=== PATIENT | male | born 1955 | race Hispanic/Latino ===

== ENCOUNTER 2018-07-20 13:04 | Inpatient (IN) | payer BC ==
[2018-07-20] MEDS ORDERED: Nitroglycerin 2% Ointment 1 INCH/1 GM Packet ONE (13:26)
[2018-07-20] MEDS ORDERED: Aspirin Chewable 81 MG TAB ONE (13:38)
[2018-07-20 13:44] LABS: #Eosinphils 0.2 thou/uL (0.0-0.7); #Lymphocytes 1.1 thou/uL (1.20-3.40); #Monocytes 0.6 thou/uL (0.11-0.59); #Neutrophils 3.6 thou/uL (1.40-6.50); %Basophils 0.8 % (0.0-1.0); %Eosinophils 3.9 % (0.0-10.0); %Lymphocytes 19.6 % (21.0-51.0); %Monocytes 10.9 % (0.0-10.0); %Neutrophils 64.8 % (42.0-75.0); Mean Corpuscular HGB CONC 33.9 g/dL (32.0-36.0); Mean Corpuscular Hemoglobin 29.9 pg (27.0-31.0); Mean Corpuscular Volume 88.2 fL (78.0-98.0); Mean Platelet Volume 7.6 fL (7.4-10.4); Platelet Count 208 thou/uL (130-400); RBC Distribution Width 12.9 % (11.5-14.5); Red Blood Cell (RBC) Count 5.02 mill/uL (4.70-6.10); White Blood Cell (WBC) Count 5.6 thou/uL (4.8-10.8)
[2018-07-20 14:26] LABS: Carbon Dioxide 25 mmol/L (23-31); Chloride 102 mmol/L (98-107); Potassium 4.7 mmol/L (3.5-5.1); Sodium 137 mmol/L (136-145)
[2018-07-20 14:27] LABS: ALT (SGPT) 25 U/L (8-55); AST (SGOT) 32 U/L (5-34); Albumin 4.1 g/dL (3.4-4.8); Alkaline Phosphatase 79 U/L (40-150); Anion Gap 15 mmol/L (10-20); BUN (Urea Nitrogen) 15 mg/dL (8.4-25.7); Bilirubin, Total 0.7 mg/dL (0.2-1.2); Calc. Creatinine Clearance 0 mL/min (70-130); Calcium 9.4 mg/dL (7.8-10.44); Estimated GFR-MDRD Greater than 90; Globulin 2.8 g/dL (2.4-3.5); Glucose 135 mg/dL (80-115); Lipase 54 U/L (8-78); Protein, Total 6.9 g/dL (5.8-8.1)
[2018-07-20 14:28] LABS: CKMB 1.2 ng/mL (0-6.6)
--- NOTE | 2018-07-20 14:35 | RAD ---
PORTABLE CHEST 1 VIEW: Date: 07/20/18 Time: 1339 hours HISTORY: Chest pain. EKG changes. FINDINGS: Comparison made with exam of 06/04/16. There are changes of median sternotomy. The heart size is normal. The lungs are expanded without foca l areas of consolidation, pneumothoraces, or pleural effusions. IMPRESSION: No radiographic evidence of acute cardiopulmonary process. POS: TPC
[2018-07-20] MEDS ORDERED: Enoxaparin Sodium 100 MG/ML SYRINGE ONE (14:56)
[2018-07-20] MEDS ORDERED: Bisacodyl 10 MG SUPP PR PRN (16:33)
[2018-07-20] MEDS ORDERED: Zolpidem Tartrate 5 MG TAB PO PRN (16:33)
[2018-07-20] MEDS ORDERED: Ondansetron ODT 4 MG TAB PO PRN (16:33)
[2018-07-20] MEDS ORDERED: Senokot S 8.6-50 MG TAB PO PRN (16:33)
[2018-07-20] MEDS ORDERED: Ondansetron PF 4 MG/2 ML Vial IVP PRN (16:33)
[2018-07-20] MEDS ORDERED: HumaLOG 300 UNITS/3 ML VIAL SC PRN ×2 (16:33)
[2018-07-20] MEDS ORDERED: Dextrose 50% Abboject 50 ML SYRINGE SLOW IVP PRN (16:33)
[2018-07-20] MEDS ORDERED: Loperamide HCl 2 MG CAP PO PRN (16:33)
[2018-07-20] MEDS ORDERED: Calcium Carbonate 500 MG ChewTAB PO PRN (16:33)
[2018-07-20] MEDS ORDERED: Dextrose 5% in Water 1,000 ML IV PRN (16:33)
[2018-07-20 16:42] VITALS: BMI 31.8
--- NOTE | 2018-07-20 16:44 | HP ---
PRIMARY CARE PHYSICIAN: Dr. Naila Harry. PRIMARY MAKEUP ARTIST: Dr. White. REASON FOR ADMISSION: Increasing angina. HISTORY OF PRESENT ILLNESS: A 62-year-old male who has underlying history of coronary artery disease with CABG for last 3 days. The patient is having increasing chest pain. He describes chest pain as left sided, radiating to back, associated with some nausea, intermittent, lasting for about few minutes. There is no specific aggravating or relieving factor. He denies any associated orthopnea, PND, or leg swelling. He denies any fever or chills. He denies any pleurisy. He denies any palpitation. For last 2 to 3 days, he was having increasing amount of chest pain happening more frequently, but this morning, when episode was longer, lasting, and more intense, and that is why he called Dr. White, who saw this patient in his office. He had EKG done and subsequently he was sent to emergency room for evaluation. In the emergency room, the patient was given nitroglycerin paste that dropped his blood pressure to 84/59, and after that, the nitroglycerin paste was removed and the patient responded to fluid for blood pressure. He was given Lovenox. He has elevated troponin. The patient is being admitted for increasing anginal discomfort. PAST MEDICAL HISTORY: 1. Coronary artery disease, coronary artery bypass grafting. 2. Diabetes type 2. 3. Hypertension. 4. Dyslipidemia. 5. History of laryngeal cancer. 6. Hypothyroidism. 7. Gastroesophageal reflux disease. PAST SURGICAL HISTORY: 1. Neck surgery. 2. CABG. PAST PSYCHIATRIC HISTORY: Reviewed and negative. SOCIAL HISTORY: The patient drinks alcohol socially. He denies any smoking. He is . He lives at home with family. FAMILY HISTORY: Positive for hypertension, diabetes, and heart disease among several family members. ALLERGIES: CODEINE. CURRENT HOME MEDICATIONS: The patient did not bring his home medication, so we are not able to verify his home medication, but the patient was on following medications. He is on diabetes medicine, thyroid medicine, cholesterol medicine. Once the patient's family member brings his home medication, then we will review the list and start home medication. EMERGENCY ROOM COURSE: The patient was given IV fluid, Lovenox 1 mg/kg, aspirin. Initially, nitroglycerin patch made his blood pressure dropped and that is why nitroglycerin patch was discontinued. REVIEW OF SYSTEMS: CONSTITUTIONAL: Negative for weight loss or gain, ability to conduct usual activities. SKIN: Negative for rash, itching. EYES: Negative for double vision, pain. ENT/MOUTH: Negative for nose bleeding, neck stiffness, pain, tenderness. CARDIOVASCULAR: Negative for palpitations, dyspnea on exertion, orthopnea. RESPIRATORY: Negative for shortness of breath, wheezing, cough, hemoptysis, fever or night sweats. GASTROINTESTINAL: Negative for poor appetite, abdominal pain, heartburn, nausea , vomiting, constipation, or diarrhea. GENITOURINARY: Negative for urgency, frequency, dysuria, nocturia. MUSCULOSKELETAL: Negative for pain, swelling. NEUROLOGIC/PSYCHIATRIC: Negative for anxiety, depression. ALLERGY/IMMUNOLOGIC: Negative for skin rash, bleeding tendency. Please see my HPI for pertinent positive and negative, all other review of systems reviewed and negative except as mentioned in HPI. PHYSICAL EXAMINATION: VITAL SIGNS: On arrival, blood pressure 117/76, pulse 78, respiratory rate 16, temperature 98.2, saturation 96% on room air. Weight 91.6 kg. GENERAL: The patient is currently alert and oriented, in no acute distress. HEENT: Head; normocephalic, atraumatic. Eyes; pupils round, reactive to light. Extraocular muscle intact. ENT, oropharynx within normal limits. Moist mucous membranes. No oral lesion. No pharyngeal erythema. No exudate. NECK: Supple. No JVD. No thyromegaly. No carotid bruit. No jugular venous distention. LUNGS: Clear to auscultation without any rhonchi or rales. CARDIAC: S1, S2. Regular without any murmur. No gallop. No rub. ABDOMEN: Soft. Bowel sounds present. Nontender. Nondistended. No organomegaly. No mass. No suprapubic tenderness. BACK: Unremarkable. No CVA tenderness. EXTREMITIES: Upper extremities, passive movement of all joints are normal. Lower extremities, no edema. Good distal pulsation. SKIN: No skin rash. HEMATOLOGICAL: No lymphadenopathy. NEUROLOGIC: Nonfocal examination. SIGNIFICANT LABORATORY AND DIAGNOSTIC DATA: CBC; WBC 5.6, hemoglobin 15.0, platelet 208. BMP; sodium 137, potassium 4.7, BUN 15, creatinine 0.77, calcium 9.4. LFT ; AST 32, ALT 25, alkaline phosphatase 79, CK-MB 1.2, troponin 0.032, albumin 4.1, lipase 54. Chest x-ray, normal. EKG showing nonspecific ST-T changes, right bundle-branch block pattern. ASSESSMENT AND PLAN: 1. Unstable angina. The patient has increasing angina. He has elevated troponin, nonspecific EKG changes. He has underlying coronary artery disease and he is already on aspirin therapy. At this point, the patient will be admitted to telemetry floor for observation. We will consult Cardiology for their opinion. Meanwhile, we will treat with aspirin 325 mg p.o. daily, Lovenox 1 mg/kg subcu twice daily. We will also start Crestor 40 mg p.o. at bedtime. We will avoid nitroglycerin patch because of hypotension. We will monitor on telemetry floor. 2. Diabetes type 2. We will continue with insulin as per sliding scale. We will hold on metformin therapy in case the patient may go for cardiac catheterization. Diabetic diet will be given. 3. Hypothyroidism. We will resume Synthroid as per home dosage. 4. Gastroesophageal reflux disease. We will continue with Pepcid 20 mg p.o. b.i.d. 5. Hypertension. Currently, the patient's blood pressure is marginal. We will hold on antihypertensive medication. 6. Deep venous thrombosis prophylaxis. The patient is already on Lovenox therapy. 7. GI prophylaxis, on Pepcid 20 mg p.o. b.i.d. CODE STATUS: The patient is full code. The patient's is surrogate decision maker. DISPOSITION PLAN: Based on clinical course. Plan of care discussed with the patient and at bedside in the emergency room. Job ID: [id number] MTDD
[2018-07-20] MEDS: Acetaminophen 325 MG TAB PO PRN (17:05)
[2018-07-20] MEDS: Sodium Chloride 0.9% 1,000 ML IV SCH (17:10)
[2018-07-20 17:28] LABS: Troponin I 0.016 ng/mL (< 0.028)
[2018-07-20 20:03] LABS: Troponin I 0.028 ng/mL (< 0.028)
[2018-07-20] MEDS: Enoxaparin Sodium 100 MG/ML SYRINGE SC SCH (20:14)
[2018-07-20] MEDS: Famotidine 20 MG TAB PO SCH (20:17)
[2018-07-20] MEDS ORDERED: Rosuvastatin 20 MG TAB PO SCH (21:00)
--- NOTE | 2018-07-21 00:19 | CON ---
DATE OF CONSULTATION: HISTORY OF PRESENT ILLNESS: The patient is a 62-year-old gentleman, presents for evaluation of chest discomfort. The patient was seen in 2008 with chest pain. He underwent a cardiac catheterization and found to have severe coronary artery disease. He subsequently underwent coronary artery bypass graft surgery x2, a BROWN was placed to the LAD and a saphenous vein graft to the diagonal branch. The patient re-presented in January of 2014 with a non-Q-wave myocardial infarction. He underwent a repeat cardiac catheterization. He was found to have an occluded left anterior descending, occluded left internal mammary artery and a patent vein graft to the first diagonal branch. The patient was placed on medical therapy. The patient states approximately a year ago, he started having exertional angina. He was placed on Ranexa. This completely relieved his chest discomfort. The patient has subsequently been on medical therapy and was doing well until a few days ago. He started having recurrent left-sided chest discomfort. This discomfort only lasts 5 to 10 seconds. He states that it has been increasing in frequency. He states this is the same discomfort he had prior to his previous [place]. The patient denies having any present chest discomfort. PAST MEDICAL HISTORY: 1. Coronary artery disease. 2. Hypertension. 3. Dyslipidemia. 4. Diabetes mellitus. 5. History of laryngeal carcinoma. PAST SURGICAL HISTORY: Coronary artery bypass graft surgery. SOCIAL HISTORY: Nonsmoker. MEDICATIONS: 1. Protonix 40 daily. 2. Januvia 100 daily. 3. Farxiga 10 mg daily. 4. Synthroid 88 mcg daily. 5. Prasugrel 10 mg daily. 6. Aspirin 81 daily. 7. Ranexa 500 b.i.d. 8. Lisinopril 2.5 daily. 9. Crestor 40 nightly. 10. Zetia 10 daily. FAMILY HISTORY: Strong family history of heart disease. ALLERGIES: CODEINE AND TRAMADOL. REVIEW OF SYSTEMS: Ten-point system otherwise unremarkable. No history of easy bruising or bleeding. PHYSICAL EXAMINATION: GENERAL: Well-developed gentleman, in no acute distress. VITAL SIGNS: Blood pressure 127/78. NECK: Showed no jugular venous distention. LUNGS: Clear to auscultation. HEART: Regular rate and rhythm with a normal S1, S2. No murmurs. ABDOMEN: Nondistended. EXTREMITIES: Show no edema. VASCULAR: Radial pulses are 2+. LABORATORY DATA: His white blood count is 5.6, hemoglobin 15.0, hematocrit 44.2 and his platelets are 208. Sodium was 137, potassium 4.7, chloride 102, bicarbonate 25, BUN 15, creatinine 0.77, glucose 135. Troponin was 0.016. EKG revealed normal sinus rhythm with marked diffuse T-wave abnormality suggestive of ischemia. IMPRESSION: 1. Unstable angina. 2. History of coronary artery bypass graft surgery. 3. Hypertension. 4. Diabetes mellitus. 5. Dyslipidemia. 6. History of laryngeal carcinoma. This gentleman with unstable angina is being treated with subcutaneous Lovenox. He has a marked T-wave abnormalities. I will increase the dose of the patient 's Ranexa. We will follow this patient with you through his hospitalization. Job ID: [id number] MTDD
--- NOTE | 2018-07-21 00:37 | PDOC.EVN ---
Event Note - Event Note Event Note: Patient with ongoing left sided chest pain, 7/10 in severity, described as sharp /pressure. Nonradiating without any associated nausea, diaphoresis or sob. Lasting anywhere from 1 to 5 minutes. Patient states it is tolerable. Not worse with deep inspiration. No chest wall tenderness on exam and lungs clear. States pain has been going on for 3 days, while at rest, becoming more frequent and causing him to come in today. Seen by Dr. Sol today. Given persistent pain, and unclear if more frequent from earlier in the day, we will obtain a 4th troponin. Repeat ECG: No dynamic changes. T-wave abnormality stable. No ST changes. Analgesia options limited due to allergies to codeine and tramadol. BP 98 systolic. Will continue to monitor. Will give IV Acetaminophen x 1, and reassess pain.
[2018-07-21] MEDS ORDERED: Acetaminophen 1,000 MG in Premix Bag 1 BAG IVPB SCH (00:45)
[2018-07-21 05:23] LABS: #Basophils 0.1 thou/uL (0.0-0.2); #Eosinphils 0.2 thou/uL (0.0-0.7); #Lymphocytes 1.2 thou/uL (1.20-3.40); #Monocytes 0.6 thou/uL (0.11-0.59); #Neutrophils 2.6 thou/uL (1.40-6.50); %Basophils 1.5 % (0.0-1.0); %Eosinophils 4.3 % (0.0-10.0); %Lymphocytes 25.3 % (21.0-51.0); %Monocytes 13.3 % (0.0-10.0); %Neutrophils 55.5 % (42.0-75.0); Mean Corpuscular HGB CONC 33.7 g/dL (32.0-36.0); Mean Corpuscular Hemoglobin 29.6 pg (27.0-31.0); Mean Corpuscular Volume 87.9 fL (78.0-98.0); Mean Platelet Volume 7.3 fL (7.4-10.4); Platelet Count 181 thou/uL (130-400); RBC Distribution Width 12.7 % (11.5-14.5); Red Blood Cell (RBC) Count 4.72 mill/uL (4.70-6.10); White Blood Cell (WBC) Count 4.7 thou/uL (4.8-10.8)
[2018-07-21 05:40] LABS: Anion Gap 10 mmol/L (10-20); BUN (Urea Nitrogen) 12 mg/dL (8.4-25.7); Calc. Creatinine Clearance 137 mL/min (70-130); Calcium 8.6 mg/dL (7.8-10.44); Carbon Dioxide 26 mmol/L (23-31); Cardiac Risk 2.4 (Less than 4.5); Chloride 105 mmol/L (98-107); Cholesterol 97 mg/dl (< 200 Desired); Estimated GFR-MDRD Greater than 90; Glucose 115 mg/dL (80-115); HDL Cholesterol 41 mg/dL (>60 Neg Risk); LDL Cholesterol, Calculated 37 mg/dL; Potassium 4.2 mmol/L (3.5-5.1); Sodium 137 mmol/L (136-145); Triglycerides 94 mg/dL (Less than 150)
[2018-07-21] MEDS: Sodium Chloride 0.9% 1,000 ML IV SCH ×2 (07:50→23:46)
[2018-07-21] MEDS: Aspirin 81 mg Enteric Coated Tablet PO SCH (07:53)
[2018-07-21] MEDS: Enoxaparin Sodium 100 MG/ML SYRINGE SC SCH ×2 (07:53→21:12)
[2018-07-21] MEDS: Prasugrel 10 MG TAB PO SCH (07:54)
[2018-07-21] MEDS: Famotidine 20 MG TAB PO SCH ×2 (07:54→21:11)
[2018-07-21] MEDS: Ezetimibe 10 MG TAB PO SCH (07:54)
[2018-07-21] MEDS ORDERED: Aspirin 325 mg Enteric Coated Tablet PO SCH (09:00)
[2018-07-21] MEDS: Nitroglycerin 2% Ointment 1 INCH/1 GM Packet TOP SCH ×2 (10:30→18:13)
--- NOTE | 2018-07-21 16:09 | PDOC.PN ---
- Subjective Encounter Start Date: 07/21/18 Encounter Start Time: 16:07 Patient lying in bed, he reports feeling better, he reports some chest pressure/ pain but improved from yesterday. He denies shortness of breath. Cardiology following and recommending heart cath. - Objective Resuscitation Status - Order Detail: 07/20/18 15:29 Resuscitation Status Routine Resuscitation Status: FULL: Full Resuscitation MAR Reviewed: Yes Vital Signs & Weight: Vital Signs (12 hours) Temp Pulse Resp BP Pulse Ox 07/21/18 11:16 97.6 F 71 16 137/94 H 96 07/21/18 07:23 97.5 F L 70 16 107/71 96 07/21/18 04:56 104/71 07/21/18 04:55 97.8 F 67 16 96/55 L 95 Weight Weight 202 lb 11.2 oz I&O: 07/20/18 07/21/18 07/22/18 06:59 06:59 06:59 Intake Total 2382.5 Output Total 2605 Balance -222.5 Result Diagrams: 07/21/18 04:55 07/21/18 04:55 Additional Labs: Accuchecks 07/21/18 07/20/18 07/20/18 11:21 20:34 16:56 POC Glucose 114 H 168 H 93 Radiology Reviewed by me: Yes Phys Exam - Physical Examination Constitutional: NAD HEENT: moist MMs, oral pharynx no lesions Neck: supple Respiratory: no wheezing, no rales Cardiovascular: RRR, no significant murmur Gastrointestinal: soft, positive bowel sounds Musculoskeletal: no edema, pulses present Neurological: non-focal, moves all 4 limbs Lymphatic: no nodes Psychiatric: normal affect, A&O x 3 Skin: no rash, cap refill <2 seconds Dx/Plan (1) Unstable angina Status: Acute (2) HTN (hypertension) Code(s): I10 - ESSENTIAL (PRIMARY) HYPERTENSION Status: Acute (3) HLD (hyperlipidemia) Code(s): E78.5 - HYPERLIPIDEMIA, UNSPECIFIED Status: Acute (4) Hypothyroidism Code(s): E03.9 - HYPOTHYROIDISM, UNSPECIFIED Status: Acute (5) Diabetes mellitus Code(s): E11.9 - TYPE 2 DIABETES MELLITUS WITHOUT COMPLICATIONS Status: Acute - Plan cont current plan of care, plan discussed w/ family * Continue Lovenox 1mg/kg BID * Cardiology following and recommending heart cath, likely to happen Monday * Troponin negative x3 * Echo showing EF 50-55% * Continue monitoring blood sugars and adjust scale accordingly * Ranexa increased per cardiology * Transition to inpatient
[2018-07-21] MEDS ORDERED: Lisinopril 2.5 MG TAB PO SCH (21:00)
[2018-07-21] MEDS ORDERED: Levothyroxine Sodium 88 MCG TAB PO SCH (21:00)
[2018-07-21] MEDS: Rosuvastatin 20 MG TAB PO SCH (21:12)
[2018-07-22] MEDS: Nitroglycerin 2% Ointment 1 INCH/1 GM Packet TOP SCH ×3 (02:00→17:58)
[2018-07-22] MEDS: Acetaminophen 325 MG TAB PO PRN (04:25)
[2018-07-22] MEDS: Prasugrel 10 MG TAB PO SCH (08:59)
[2018-07-22] MEDS: Ezetimibe 10 MG TAB PO SCH (08:59)
[2018-07-22] MEDS: Famotidine 20 MG TAB PO SCH ×2 (08:59→21:16)
[2018-07-22] MEDS: Aspirin 81 mg Enteric Coated Tablet PO SCH (08:59)
[2018-07-22] MEDS: Enoxaparin Sodium 100 MG/ML SYRINGE SC SCH ×2 (09:00→21:17)
--- NOTE | 2018-07-22 09:50 | PDOC.PN ---
- Subjective Encounter Start Date: 07/22/18 Encounter Start Time: 07:10 -: old records requested/rev pt's BP remains low, he feels dizzi for short time when he stands up but after that he does not feels dizziness, this morning he had chest pain - Objective Resuscitation Status - Order Detail: 07/20/18 15:29 Resuscitation Status Routine Resuscitation Status: FULL: Full Resuscitation MAR Reviewed: Yes Vital Signs & Weight: Vital Signs (12 hours) Temp Pulse Resp BP BP BP BP 07/22/18 07:19 98.4 F 67 16 102/64 07/22/18 06:04 107/70 07/22/18 05:40 67 90/59 L 87/62 L 93/58 L 07/22/18 05:22 90/58 L 07/22/18 05:21 85/55 L 07/22/18 04:16 91/59 L 07/22/18 04:15 98.2 F 67 16 85/58 L 07/21/18 23:40 98.0 F 67 16 102/64 Pulse Ox 07/22/18 07:19 97 07/22/18 06:04 94 L 07/22/18 05:40 07/22/18 05:22 07/22/18 05:21 07/22/18 04:16 07/22/18 04:15 96 07/21/18 23:40 95 Weight Weight 202 lb I&O: 07/21/18 07/22/18 07/23/18 06:59 06:59 06:59 Intake Total 2382.5 2550 Output Total 2605 2895 Balance -222.5 -345 Result Diagrams: 07/21/18 04:55 07/21/18 04:55 Additional Labs: Accuchecks 07/22/18 07/21/18 07/21/18 05:22 20:47 17:18 POC Glucose 108 109 106 07/21/18 11:21 POC Glucose 114 H Radiology Reviewed by me: Yes (echo reviewed) EKG Reviewed by me: Yes (nsr) Phys Exam - Physical Examination Constitutional: NAD HEENT: PERRLA, moist MMs, sclera anicteric Neck: no JVD, supple Respiratory: no wheezing, no rales, no rhonchi Cardiovascular: RRR, no significant murmur, no rub Gastrointestinal: soft, non-tender, no distention, positive bowel sounds Musculoskeletal: no edema, pulses present Neurological: non-focal, normal sensation, moves all 4 limbs Lymphatic: no nodes Psychiatric: normal affect, A&O x 3 Skin: no rash, normal turgor Dx/Plan (1) Unstable angina Status: Acute Comment: on medical therapy for now, cardiology following (2) Diabetes type 2, controlled Code(s): E11.9 - TYPE 2 DIABETES MELLITUS WITHOUT COMPLICATIONS Status: Chronic (3) HLD (hyperlipidemia) Code(s): E78.5 - HYPERLIPIDEMIA, UNSPECIFIED Status: Chronic (4) HTN (hypertension) Code(s): I10 - ESSENTIAL (PRIMARY) HYPERTENSION Status: Chronic (5) Hypothyroidism Code(s): E03.9 - HYPOTHYROIDISM, UNSPECIFIED Status: Chronic (6) Obesity (BMI 30.0-34.9) Code(s): E66.9 - OBESITY, UNSPECIFIED Status: Chronic - Plan cont current plan of care, plan discussed w/ family * ? plan for cardiac cath tomorrow * further disposition based on cardiology recommendation * currently on optimum medical therapy * monitor BP * continue IVF * medication reviewed as below * symptomatic treatment. Review of Systems - Review of Systems Constitutional: negative: fever, chills, sweats, weakness, malaise, other Eyes: negative: Pain, Vision Change, Conjunctivae Inflammation, Eyelid Inflammation, Redness, Other ENT: negative: Ear Pain, Ear Discharge, Nose Pain, Nose Discharge, Nose Congestion, Mouth Pain, Mouth Swelling, Throat Pain, Throat Swelling, Other Respiratory: negative: Cough, Dry, Shortness of Breath, Hemoptysis, SOB with Excertion, Pleuritic Pain, Sputum, Wheezing Cardiovascular: chest pain, light headedness. negative: palpitations, orthopnea , paroxysmal nocturnal dyspnea, edema, other Gastrointestinal: negative: Nausea, Vomiting, Abdominal Pain, Diarrhea, Constipation, Melena, Hematochezia, Other Genitourinary: negative: Dysuria, Frequency, Incontinence, Hematuria, Retention , Other Musculoskeletal: negative: Neck Pain, Shoulder Pain, Arm Pain, Back Pain, Hand Pain, Leg Pain, Foot Pain, Other Skin: negative: Rash, Lesions, Bam, Bruising, Other - Medications/Allergies Allergies/Adverse Reactions: Allergies Allergy/AdvReac Type Severity Reaction Status Date / Time codeine Allergy Unknown Verified 08/29/12 19:13 tramadol Allergy Verified 01/22/14 02:25 Medications: Current Medications Acetaminophen (Tylenol) 650 mg PO Q4H PRN PRN Reason: Headache/Fever/Mild Pain (1-3) Last Admin: 07/22/18 04:25 Dose: 650 mg Aspirin (Ecotrin) 81 mg PO DAILY [facility] Last Admin: 07/22/18 08:59 Dose: 81 mg Bisacodyl (Dulcolax) 10 mg AL DAILYPRN PRN PRN Reason: Constipation Calcium Carbonate (Tums) 1,000 mg PO Q4H PRN PRN Reason: Heartburn or Indigestion Dextrose/Water (Dextrose 50%) 25 gm SLOW IVP PRN PRN PRN Reason: Hypoglycemia Ezetimibe (Zetia) 10 mg PO DAILY [facility] Last Admin: 07/22/18 08:59 Dose: 10 mg Enoxaparin Sodium (Lovenox) 90 mg SC 0900,2100 [facility] Last Admin: 07/22/18 09:00 Dose: 90 mg Famotidine (Pepcid) 20 mg PO BID [facility] Last Admin: 07/22/18 08:59 Dose: 20 mg Glucagon (Glucagon) 1 mg IM PRN PRN PRN Reason: Hypoglycemia Dextrose/Water (D5w) 1,000 mls @ 0 mls/hr IV .Q0M PRN PRN Reason: Hypoglycemia Sodium Chloride (Normal Saline 0.9%) 1,000 mls @ 70 mls/hr IV .[id number] [facility] Last Admin: 07/21/18 23:46 Dose: 1,000 mls Insulin Human Lispro (Humalog) 0 units SC .MODERATE SLIDING SC PRN PRN Reason: Moderate Correctional Scale Insulin Human Lispro (Humalog) 0 units SC .BEDTIME SLIDING SC PRN PRN Reason: Bedtime Correctional Scale Levothyroxine Sodium (Synthroid) 88 mcg PO HS [facility] Last Admin: 07/21/18 21:11 Dose: 88 mcg Lisinopril (Zestril) 2.5 mg PO HS [facility] Last Admin: 07/21/18 21:12 Dose: Not Given Loperamide HCl (Imodium) 2 mg PO PRN PRN PRN Reason: Diarrhea/Loose Stools Nitroglycerin (Nitro-Bid 2% Ointment) 1 inch TOP 0200,1000,1800 [facility] Last Admin: 07/22/18 02:00 Dose: 1 inch Ondansetron HCl (Zofran Odt) 4 mg PO Q6H PRN PRN Reason: Nausea/Vomiting Ondansetron HCl (Zofran) 4 mg IVP Q6H PRN PRN Reason: Nausea/Vomiting Pantoprazole Sodium (Protonix) 40 mg PO DAILY [facility] Last Admin: 07/22/18 08:59 Dose: 40 mg Prasugrel (Effient) 10 mg PO DAILY [facility] Last Admin: 07/22/18 08:59 Dose: 10 mg Ranolazine (Ranexa) 1,000 mg PO BID [facility] Last Admin: 07/22/18 08:59 Dose: 1,000 mg Rosuvastatin Calcium (Crestor) 40 mg PO HS [facility] Last Admin: 07/21/18 21:12 Dose: 40 mg Senna/Docusate Sodium (Senokot S) 2 tab PO BID PRN PRN Reason: Constipation Zolpidem Tartrate (Ambien) 5 mg PO HSPRN PRN PRN Reason: Insomnia
[2018-07-22] MEDS ORDERED: Communication Order-Pharmacy FS SCH (11:00)
[2018-07-22] MEDS: Sodium Chloride 0.9% 1,000 ML IV SCH (15:00)
[2018-07-22] MEDS: Rosuvastatin 20 MG TAB PO SCH (21:16)
[2018-07-23] MEDS: Nitroglycerin 2% Ointment 1 INCH/1 GM Packet TOP SCH ×2 (01:59→09:19)
[2018-07-23] MEDS: Sodium Chloride 0.9% 1,000 ML IV SCH (04:26)
[2018-07-23] MEDS: Levothyroxine Sodium 88 MCG TAB PO SCH (05:56)
[2018-07-23] MEDS: Prasugrel 10 MG TAB PO SCH (05:56)
[2018-07-23] MEDS: Aspirin 81 mg Enteric Coated Tablet PO SCH (05:56)
[2018-07-23] MEDS: Famotidine 20 MG TAB PO SCH ×2 (05:57→20:51)
[2018-07-23] MEDS: Ezetimibe 10 MG TAB PO SCH (05:57)
[2018-07-23] MEDS ORDERED: Midazolam HCl 2 mg/2 ml Vial ONE (09:08)
[2018-07-23] MEDS ORDERED: Sodium Chloride 0.9% 200 ML IV PRN (09:42)
[2018-07-23] MEDS ORDERED: Nitroglycerin 0.4 MG TAB (25 Tab Bottle) SL PRN (09:42)
[2018-07-23] MEDS ORDERED: Iopamidol 370 76% 100 ML VIAL ONE (10:35)
--- NOTE | 2018-07-23 12:03 | PDOC.PN ---
- Subjective Encounter Start Date: 07/23/18 Encounter Start Time: 12:50 Patient seen and examined. No new complaints. No overnight events no further chest pain, s/p cardiac cath today - Objective Resuscitation Status - Order Detail: 07/20/18 15:29 Resuscitation Status Routine Resuscitation Status: FULL: Full Resuscitation MAR Reviewed: Yes Vital Signs & Weight: Vital Signs (12 hours) Temp Pulse Resp BP BP BP BP 07/23/18 11:30 98.3 F 64 18 119/64 07/23/18 10:00 98 F 65 16 118/82 07/23/18 07:56 98.6 F 68 20 131/86 127/88 130/86 07/23/18 04:24 98.3 F 69 18 101/65 07/23/18 00:15 97.9 F 82 18 103/65 Pulse Ox 07/23/18 11:30 98 07/23/18 10:00 98 07/23/18 07:56 98 07/23/18 04:24 96 07/23/18 00:15 92 L Weight Weight 206 lb 6 oz I&O: 07/22/18 07/23/18 07/24/18 06:59 06:59 06:59 Intake Total 2550 Output Total 2895 Balance -345 Result Diagrams: 07/21/18 04:55 07/21/18 04:55 Additional Labs: Accuchecks 07/23/18 07/23/18 07/22/18 10:36 06:01 21:08 POC Glucose 111 H 109 102 07/22/18 07/22/18 16:53 13:11 POC Glucose 96 116 H EKG Reviewed by me: Yes Phys Exam - Physical Examination Constitutional: NAD HEENT: PERRLA, moist MMs, sclera anicteric Neck: no JVD, supple Respiratory: no wheezing, no rales, no rhonchi Cardiovascular: RRR, no significant murmur, no rub Gastrointestinal: soft, non-tender, no distention, positive bowel sounds Musculoskeletal: no edema, pulses present Neurological: non-focal, normal sensation, moves all 4 limbs Lymphatic: no nodes Psychiatric: normal affect, A&O x 3 Skin: no rash, normal turgor Dx/Plan (1) Unstable angina Status: Acute Comment: on medical therapy for now, cardiology following (2) Diabetes type 2, controlled Code(s): E11.9 - TYPE 2 DIABETES MELLITUS WITHOUT COMPLICATIONS Status: Chronic (3) HLD (hyperlipidemia) Code(s): E78.5 - HYPERLIPIDEMIA, UNSPECIFIED Status: Chronic (4) HTN (hypertension) Code(s): I10 - ESSENTIAL (PRIMARY) HYPERTENSION Status: Chronic (5) Hypothyroidism Code(s): E03.9 - HYPOTHYROIDISM, UNSPECIFIED Status: Chronic (6) Obesity (BMI 30.0-34.9) Code(s): E66.9 - OBESITY, UNSPECIFIED Status: Chronic - Plan cont current plan of care * medication reviewed as below * symptomatic treatment * continue medical therapy * expecting DC tomorrow * will adjust antianginal meds. Review of Systems - Review of Systems ENT: negative: Ear Pain, Ear Discharge, Nose Pain, Nose Discharge, Nose Congestion, Mouth Pain, Mouth Swelling, Throat Pain, Throat Swelling, Other Respiratory: negative: Cough, Dry, Shortness of Breath, Hemoptysis, SOB with Excertion, Pleuritic Pain, Sputum, Wheezing Cardiovascular: negative: chest pain, palpitations, orthopnea, paroxysmal nocturnal dyspnea, edema, light headedness, other Gastrointestinal: negative: Nausea, Vomiting, Abdominal Pain, Diarrhea, Constipation, Melena, Hematochezia, Other Genitourinary: negative: Dysuria, Frequency, Incontinence, Hematuria, Retention , Other Musculoskeletal: negative: Neck Pain, Shoulder Pain, Arm Pain, Back Pain, Hand Pain, Leg Pain, Foot Pain, Other Skin: negative: Rash, Lesions, Bam, Bruising, Other - Medications/Allergies Allergies/Adverse Reactions: Allergies Allergy/AdvReac Type Severity Reaction Status Date / Time codeine Allergy Unknown Verified 08/29/12 19:13 tramadol Allergy Verified 01/22/14 02:25 Medications: Current Medications Acetaminophen (Tylenol) 650 mg PO Q4H PRN PRN Reason: Headache/Fever/Mild Pain (1-3) Last Admin: 07/22/18 04:25 Dose: 650 mg Aspirin (Ecotrin) 81 mg PO DAILY [facility] Last Admin: 07/23/18 05:56 Dose: 81 mg Bisacodyl (Dulcolax) 10 mg [place] DAILYPRN PRN PRN Reason: Constipation Calcium Carbonate (Tums) 1,000 mg PO Q4H PRN PRN Reason: Heartburn or Indigestion Dextrose/Water (Dextrose 50%) 25 gm SLOW IVP PRN PRN PRN Reason: Hypoglycemia Ezetimibe (Zetia) 10 mg PO DAILY [facility] Last Admin: 07/23/18 05:57 Dose: 10 mg Famotidine (Pepcid) 20 mg PO BID [facility] Last Admin: 07/23/18 05:57 Dose: 20 mg Glucagon (Glucagon) 1 mg IM PRN PRN PRN Reason: Hypoglycemia Dextrose/Water (D5w) 1,000 mls @ 0 mls/hr IV .Q0M PRN PRN Reason: Hypoglycemia Sodium Chloride (Normal Saline 0.9%) 1,000 mls @ 70 mls/hr IV .[id number] [facility] Last Admin: 07/23/18 04:26 Dose: 1,000 mls Sodium Chloride (Normal Saline 0.9%) 200 mls @ 0 mls/hr IV ONE PRN PRN Reason: SBP < 90 Stop: 07/23/18 23:00 Insulin Human Lispro (Humalog) 0 units SC .MODERATE SLIDING SC PRN PRN Reason: Moderate Correctional Scale Insulin Human Lispro (Humalog) 0 units SC .BEDTIME SLIDING SC PRN PRN Reason: Bedtime Correctional Scale Isosorbide Mononitrate (Imdur Er) 30 mg PO 1200 [facility] Levothyroxine Sodium (Synthroid) 88 mcg PO 0600 [facility] Last Admin: 07/23/18 05:56 Dose: 88 mcg Lisinopril (Zestril) 2.5 mg PO DAILY [facility] Loperamide HCl (Imodium) 2 mg PO PRN PRN PRN Reason: Diarrhea/Loose Stools Nitroglycerin (Nitrostat) 0.4 mg SL Q5MIN PRN PRN Reason: Chest Pain Ondansetron HCl (Zofran Odt) 4 mg PO Q6H PRN PRN Reason: Nausea/Vomiting Ondansetron HCl (Zofran) 4 mg IVP Q6H PRN PRN Reason: Nausea/Vomiting Pantoprazole Sodium (Protonix) 40 mg PO DAILY [facility] Last Admin: 07/23/18 05:57 Dose: 40 mg Prasugrel (Effient) 10 mg PO DAILY [facility] Last Admin: 07/23/18 05:56 Dose: 10 mg Ranolazine (Ranexa) 1,000 mg PO BID [facility] Last Admin: 07/23/18 05:56 Dose: 1,000 mg Rosuvastatin Calcium (Crestor) 40 mg PO HS [facility] Last Admin: 07/22/18 21:16 Dose: 40 mg Senna/Docusate Sodium (Senokot S) 2 tab PO BID PRN PRN Reason: Constipation Zolpidem Tartrate (Ambien) 5 mg PO HSPRN PRN PRN Reason: Insomnia
[2018-07-23] MEDS: Rosuvastatin 20 MG TAB PO SCH (20:51)
[2018-07-24] MEDS: Levothyroxine Sodium 88 MCG TAB PO SCH (04:56)
[2018-07-24] MEDS: Prasugrel 10 MG TAB PO SCH (08:24)
[2018-07-24] MEDS: Ezetimibe 10 MG TAB PO SCH (08:24)
[2018-07-24] MEDS: Aspirin 81 mg Enteric Coated Tablet PO SCH (08:25)
[2018-07-24] MEDS: Lisinopril 2.5 MG TAB PO SCH (08:25)
[2018-07-24] MEDS: Famotidine 20 MG TAB PO SCH ×2 (08:26→20:01)
--- NOTE | 2018-07-24 10:08 | ULT ---
Exam: RIGHT LOWER EXTREMITY GROIN ULTRASOUND WITH COLOR FLOW AND DOPPLER IMAGING AND SPECTRAL WAVEFORM ANAL YSIS: HISTORY: Evaluate pseudoaneurysm. Patient is status post right groin vascular catheterization. COMPARISON: None TECHNIQUE: Grayscale, color flow, Doppler imaging, and spectral waveform analysis performed of the [facility] groin FINDINGS: There is a pseudoaneurysm in the right groin, superior to the right common femoral artery and common femoral vein measuring 1.5 x 1.2 x 1.3 cm. The neck of the pseudoaneurysm measures 0.2 cm. There is a second pseudoaneurysm inferior to the right common femoral artery and common femoral vein measuring 1.5 x 1.7 x 1.0 cm. IMPRESSION: Two separate pseudoaneurysms in the region of the right common femoral artery and common femoral vein . One of the pseudoaneurysm is superior to the vascular bundle, while the other is inferior and slightly more lateral. Results of study were conveyed by Rose Mary, the merchandise flow team leader, to Dr. White's office on 07/24/2018 at 10: 08 AM. Code CR Transcribed Date/Time: 07/24/2018 10:18 AM
[2018-07-24] MEDS ORDERED: Fentanyl 100 MCG/2 ML VIAL ONE (10:37)
--- NOTE | 2018-07-24 11:10 | PDOC.PN ---
- Subjective Encounter Start Date: 07/24/18 Encounter Start Time: 08:00 Patient seen and examined. No new complaints. No overnight events - Objective Resuscitation Status - Order Detail: 07/20/18 15:29 Resuscitation Status Routine Resuscitation Status: FULL: Full Resuscitation MAR Reviewed: Yes Vital Signs & Weight: Vital Signs (12 hours) Temp Pulse Resp BP BP BP Pulse Ox 07/24/18 08:25 65 97/56 L 07/24/18 07:14 98.2 F 67 18 90/52 L 96 07/24/18 03:45 97.7 F 79 14 95/62 93 L Weight Weight 205 lb 8 oz I&O: 07/23/18 07/24/18 07/25/18 06:59 06:59 06:59 Intake Total 1001 Output Total 1275 Balance -274 Result Diagrams: 07/21/18 04:55 07/21/18 04:55 Additional Labs: Accuchecks 07/24/18 07/23/18 07/23/18 05:14 20:35 16:49 POC Glucose 150 H 139 H 142 H Radiology Reviewed by me: Yes (us groin- pseudoaneurysm) EKG Reviewed by me: Yes Phys Exam - Physical Examination Constitutional: NAD HEENT: PERRLA, moist MMs, sclera anicteric Neck: no JVD, supple Respiratory: no wheezing, no rales, no rhonchi Cardiovascular: RRR, no significant murmur, no rub Gastrointestinal: soft, non-tender, no distention, positive bowel sounds Musculoskeletal: no edema, pulses present Neurological: non-focal, normal sensation, moves all 4 limbs Lymphatic: no nodes Psychiatric: normal affect, A&O x 3 Skin: no rash, normal turgor Dx/Plan (1) Unstable angina Status: Acute Comment: on medical therapy for now, cardiology following (2) Diabetes type 2, controlled Code(s): E11.9 - TYPE 2 DIABETES MELLITUS WITHOUT COMPLICATIONS Status: Chronic (3) HLD (hyperlipidemia) Code(s): E78.5 - HYPERLIPIDEMIA, UNSPECIFIED Status: Chronic (4) HTN (hypertension) Code(s): I10 - ESSENTIAL (PRIMARY) HYPERTENSION Status: Chronic (5) Hypothyroidism Code(s): E03.9 - HYPOTHYROIDISM, UNSPECIFIED Status: Chronic (6) Obesity (BMI 30.0-34.9) Code(s): E66.9 - OBESITY, UNSPECIFIED Status: Chronic - Plan cont current plan of care, plan discussed w/ family * US shows pseudoaneurysm but distal pulsation are OK, will monitor * cardiology following * medication reviewed as below * symptomatic treatment * will consider DC based on cardiology recommendation. Review of Systems - Review of Systems ENT: negative: Ear Pain, Ear Discharge, Nose Pain, Nose Discharge, Nose Congestion, Mouth Pain, Mouth Swelling, Throat Pain, Throat Swelling, Other Respiratory: negative: Cough, Dry, Shortness of Breath, Hemoptysis, SOB with Excertion, Pleuritic Pain, Sputum, Wheezing Cardiovascular: negative: chest pain, palpitations, orthopnea, paroxysmal nocturnal dyspnea, edema, light headedness, other Gastrointestinal: negative: Nausea, Vomiting, Abdominal Pain, Diarrhea, Constipation, Melena, Hematochezia, Other Genitourinary: negative: Dysuria, Frequency, Incontinence, Hematuria, Retention , Other Musculoskeletal: negative: Neck Pain, Shoulder Pain, Arm Pain, Back Pain, Hand Pain, Leg Pain, Foot Pain, Other Skin: negative: Rash, Lesions, Bam, Bruising, Other - Medications/Allergies Allergies/Adverse Reactions: Allergies Allergy/AdvReac Type Severity Reaction Status Date / Time codeine Allergy Unknown Verified 08/29/12 19:13 tramadol Allergy Verified 01/22/14 02:25 Medications: Current Medications Acetaminophen (Tylenol) 650 mg PO Q4H PRN PRN Reason: Headache/Fever/Mild Pain (1-3) Last Admin: 07/22/18 04:25 Dose: 650 mg Aspirin (Ecotrin) 81 mg PO DAILY [facility] Last Admin: 07/24/18 08:25 Dose: 81 mg Bisacodyl (Dulcolax) 10 mg [place] DAILYPRN PRN PRN Reason: Constipation Calcium Carbonate (Tums) 1,000 mg PO Q4H PRN PRN Reason: Heartburn or Indigestion Dextrose/Water (Dextrose 50%) 25 gm SLOW IVP PRN PRN PRN Reason: Hypoglycemia Ezetimibe (Zetia) 10 mg PO DAILY [facility] Last Admin: 07/24/18 08:24 Dose: 10 mg Famotidine (Pepcid) 20 mg PO BID [facility] Last Admin: 07/24/18 08:26 Dose: 20 mg Glucagon (Glucagon) 1 mg IM PRN PRN PRN Reason: Hypoglycemia Dextrose/Water (D5w) 1,000 mls @ 0 mls/hr IV .Q0M PRN PRN Reason: Hypoglycemia Insulin Human Lispro (Humalog) 0 units SC .MODERATE SLIDING SC PRN PRN Reason: Moderate Correctional Scale Insulin Human Lispro (Humalog) 0 units SC .BEDTIME SLIDING SC PRN PRN Reason: Bedtime Correctional Scale Isosorbide Mononitrate (Imdur Er) 30 mg PO 1200 [facility] Levothyroxine Sodium (Synthroid) 88 mcg PO 0600 [facility] Last Admin: 07/24/18 04:56 Dose: 88 mcg Lisinopril (Zestril) 2.5 mg PO DAILY [facility] Last Admin: 07/24/18 08:25 Dose: 2.5 mg Loperamide HCl (Imodium) 2 mg PO PRN PRN PRN Reason: Diarrhea/Loose Stools Nitroglycerin (Nitrostat) 0.4 mg SL Q5MIN PRN PRN Reason: Chest Pain Ondansetron HCl (Zofran Odt) 4 mg PO Q6H PRN PRN Reason: Nausea/Vomiting Ondansetron HCl (Zofran) 4 mg IVP Q6H PRN PRN Reason: Nausea/Vomiting Pantoprazole Sodium (Protonix) 40 mg PO DAILY [facility] Last Admin: 07/24/18 08:24 Dose: 40 mg Prasugrel (Effient) 10 mg PO DAILY [facility] Last Admin: 07/24/18 08:24 Dose: 10 mg Ranolazine (Ranexa) 1,000 mg PO BID [facility] Last Admin: 07/24/18 08:24 Dose: 1,000 mg Rosuvastatin Calcium (Crestor) 40 mg PO [facility] Last Admin: 07/23/18 20:51 Dose: 40 mg Senna/Docusate Sodium (Senokot S) 2 tab PO BID PRN PRN Reason: Constipation Zolpidem Tartrate (Ambien) 5 mg PO HSPRN PRN PRN Reason: Insomnia
--- NOTE | 2018-07-24 18:46 | PRG ---
DATE OF SERVICE: 07/24/2018 SUBJECTIVE: Mr. Hampton had an ultrasound of his right groin this morning and it was ordered because there was some difficulty obtaining hemostasis yesterday. He was found to have a pseudoaneurysm and was successfully compressed. Blood pressure 101/70 and pulse 60, it is irregular. The right groin has extensive ecchymosis. ASSESSMENT: 1. Episodes of unstable angina. Medical therapy appears to be only reasonable option at this point. 2. Pseudoaneurysm, successfully compressed. PLAN: We will repeat the ultrasound in the morning. If that looks okay, he will go home. We will hold the Effient until the ultrasound is completed. Job ID: [id number]
[2018-07-24] MEDS: Rosuvastatin 20 MG TAB PO SCH (20:01)
[2018-07-25] MEDS: Levothyroxine Sodium 88 MCG TAB PO SCH (05:30)
[2018-07-25 05:34] LABS: #Eosinphils 0.3 thou/uL (0.0-0.7); #Lymphocytes 1.3 thou/uL (1.20-3.40); #Monocytes 0.9 thou/uL (0.11-0.59); #Neutrophils 3.8 thou/uL (1.40-6.50); %Basophils 0.6 % (0.0-1.0); %Eosinophils 4.2 % (0.0-10.0); %Monocytes 13.9 % (0.0-10.0); %Neutrophils 61.3 % (42.0-75.0); Hemoglobin 12.6 g/dL (14.0-18.0); Mean Corpuscular Hemoglobin 30.2 pg (27.0-31.0); Mean Corpuscular Volume 88.9 fL (78.0-98.0); Mean Platelet Volume 7.5 fL (7.4-10.4); Platelet Count 180 thou/uL (130-400); RBC Distribution Width 12.8 % (11.5-14.5); Red Blood Cell (RBC) Count 4.18 mill/uL (4.70-6.10); White Blood Cell (WBC) Count 6.3 thou/uL (4.8-10.8)
[2018-07-25 05:54] LABS: Anion Gap 9 mmol/L (10-20); BUN (Urea Nitrogen) 11 mg/dL (8.4-25.7); Calc. Creatinine Clearance 122 mL/min (70-130); Calcium 8.9 mg/dL (7.8-10.44); Carbon Dioxide 31 mmol/L (23-31); Chloride 101 mmol/L (98-107); Estimated GFR-MDRD Greater than 90; Glucose 135 mg/dL (80-115); Sodium 137 mmol/L (136-145)
--- NOTE | 2018-07-25 08:44 | ULT ---
Exam: Ultrasound pseudoaneurysm compression evaluation: COMPARISON: 07/24/2018 FINDINGS: 2 previously noted right groin pseudoaneurysms are reevaluated. There is no evidence for abnormal judith w noted in either one of these abnormal areas. No evidence for a pseudoaneurysm. IMPRESSION: 2 clotted pseudoaneurysms. No evidence for abnormal flow within either of the previously noted pseudo aneurysms.
[2018-07-25] MEDS: Famotidine 20 MG TAB PO SCH (09:27)
[2018-07-25] MEDS: Lisinopril 2.5 MG TAB PO SCH (09:27)
[2018-07-25] MEDS: Ezetimibe 10 MG TAB PO SCH (09:27)
--- NOTE | 2018-07-25 11:08 | PRG ---
DATE OF SERVICE: 07/25/2018 SUBJECTIVE: Mr. Hampton is doing well today. He has been up and around. No further chest pain. OBJECTIVE: VITAL SIGNS: Blood pressure is on the low side, 99/67 and pulse 68, regular. LUNGS: Clear. CARDIAC: Normal S1 and normal S2. ASSESSMENT: 1. Coronary artery disease. 2. Right bundle branch block. 3. Patent saphenous vein graft to the diagonal, which feeds the diagonal and retrograde the left anterior descending. 4. Hypercholesterolemia on medicine. 5. Relatively low blood pressure. 6. The patient developed pseudoaneurysm following cardiac catheterization, but that was able to be treated effectively with compression. The scan today looks like that the pseudoaneurysms have been sealed and clotted. PLAN: 1. He is back on aspirin. 2. He is on lisinopril. 3. Prasugrel. 4. Ranolazine 1000 mg twice a day. 5. No nitrates at this time as he does take a Viagra or Cialis intermittently. Job ID: [id number]
[2018-07-25 11:50] VITALS: BP 97/62; TEMP 97.6
[2018-07-25] MEDS ORDERED: Aspirin 81 mg Enteric Coated Tablet PO SCH (12:00)
--- NOTE | 2018-07-25 14:06 | DIS ---
DATE OF ADMISSION: 07/21/2018 DATE OF DISCHARGE: 07/25/2018 PRIMARY CARE PHYSICIAN: Dr. Naila Harry. DISCHARGE DISPOSITION: Home. PRIMARY DISCHARGE DIAGNOSIS: Unstable angina. SECONDARY DISCHARGE DIAGNOSES: Obesity with BMI of 31, hypothyroidism, hypertension, dyslipidemia, diabetes type 2, coronary artery disease with history of CABG, gastroesophageal reflux disease. PRIMARY PROCEDURE/OPERATION: Cardiac catheterization was performed by Dr. White and found with patent CABG and no acute coronary stenosis. RADIOLOGICAL INVESTIGATION: Chest x-ray normal. Echocardiography showed EF of 50% to 55%. Ultrasonography groin area showed pseudoaneurysm. SIGNIFICANT LABORATORY DATA: WBC 6.3, hemoglobin 12.6, platelet 180. Sodium 137, creatinine 0.81, calcium 8.9. DISCHARGE MEDICATIONS: 1. Aspirin 81 mg daily. 2. Dapagliflozin 10 mg p.o. daily. 3. Trulicity 1.5 mg subcu every 7 days. 4. Zetia 10 mg daily. 5. Synthroid 88 mcg p.o. daily. 6. Lisinopril 2.5 mg p.o. at bedtime. 7. Metformin 500 mg p.o. b.i.d. 8. Protonix 40 mg p.o. b.i.d. 9. Prasugrel 10 mg p.o. daily. 10. Crestor 10 mg p.o. at bedtime. 11. Januvia 100 mg p.o. daily. 12. Ranexa 1000 mg p.o. b.i.d. CONTRAINDICATION: None. CODE STATUS: Full code. INPATIENT COREMAKER EXPERIMENTAL: Dr. White was following while in hospital. TEST RESULT PENDING ON DISCHARGE: None. ALLERGIES: CODEINE AND TRAMADOL. DISCHARGE PLAN: Posthospital, the patient is instructed to follow up with Dr. White in 2 weeks. The patient will make appointment with primary care physician in 1 week. HOSPITAL COURSE: A 62-year-old male with above-mentioned medical problem, who was admitted by me on July 20, 2018. Please see my H and P for further details. The patient was having increasing amount of anginal pain and his clinical presentation was consistent with unstable angina. His electrocardiogram and chest x-ray were normal. His troponins were negative. During this admission, we treated him medically with aspirin, prasugrel, statin therapy, Lovenox. Subsequently, the patient was also kept on long-acting nitrate that made his blood pressure dropped, because he was also on Cialis. The patient's blood pressure responded once we stopped Imdur. The patient also underwent cardiac catheterization, which showed patent bypass graft and without any other coronary problem. The patient also had ultrasound of groin, which showed minor pseudoaneurysm without any acute process. His distal pulsation was intact. During this admission, we increased the Ranexa to 1000 mg p.o. b.i.d. Rest of medication he will continue as per previous including his diabetes medication. The patient is seen and examined at bedside today. PHYSICAL EXAMINATION: VITAL SIGNS: Currently, temperature 97.6, pulse 69, respiratory rate 18, blood pressure 97/62, weight 200 pounds. GENERAL: The patient is currently alert and awake, in no obvious acute distress. HEAD: Normocephalic and atraumatic. LUNGS: Clear without any rhonchi. CARDIAC: S1 and S2, regular without any murmur. ABDOMEN: Soft and benign. EXTREMITIES: No edema. NEUROLOGIC: Nonfocal examination. Overall, the patient is medically stable for discharge today. Plan of care discussed with the patient as well as his at bedside. Job ID: [id number]
[2018-07-26] MEDS ORDERED: Prasugrel 10 MG TAB PO SCH (09:00)
[2018-07-26] MEDS ORDERED: Aspirin 81 mg Enteric Coated Tablet PO SCH (09:00)
== END 2018-07-25 13:10 | disposition home or self-care (01) | DRG 287 ==
LOC: ERS 13:04 → 2SW 15:00 → OBSVTOIN 07-21 12:00 → 2NO 07-22 14:16
PROVIDERS: ADMIT Internal Medicine; ATTEND Internal Medicine
PROC: 4A023N7 Measurement of Cardiac Sampling and Pressure, Left Heart, Percutaneous Approach (ICD-10-PCS; principal; 2018-07-21)
PROC: B2151ZZ Fluoroscopy of Left Heart using Low Osmolar Contrast (ICD-10-PCS; 2018-07-21)
PROC: B2111ZZ Fluoroscopy of Multiple Coronary Arteries using Low Osmolar Contrast (ICD-10-PCS; 2018-07-21)
DX: I25.110 Atherosclerotic heart disease of native coronary artery with unstable angina pectoris (principal); E11.9 Type 2 diabetes mellitus without complications; I10 Essential (primary) hypertension; E03.9 Hypothyroidism, unspecified; E66.9 Obesity, unspecified; E78.00 Pure hypercholesterolemia, unspecified; K21.9 Gastro-esophageal reflux disease without esophagitis; Z85.21 Personal history of malignant neoplasm of larynx; Z88.5 Allergy status to narcotic agent; Z79.899 Other long term (current) drug therapy; Z79.82 Long term (current) use of aspirin; Z68.31 Body mass index [BMI] 31.0-31.9, adult; Z95.1 Presence of aortocoronary bypass graft; I25.2 Old myocardial infarction; I72.8 Aneurysm of other specified arteries
CPT/HCPCS: 36415; 36416; 71045; 76936; 80048; 80053; 80061; 82553; 83690; 84484; 85025; 93005; 93010; 93306; 93458; 94760; 96360; 96372; 99152; C1769; J0131; J1644; J1650; J2250; J3010; Q9967

== ENCOUNTER 2018-07-28 08:48 | Emergency (ER) | payer BC ==
[2018-07-28 09:14] LABS: #Basophils 0.1 thou/uL (0.0-0.2); #Eosinphils 0.2 thou/uL (0.0-0.7); #Lymphocytes 1.1 thou/uL (1.20-3.40); #Monocytes 0.7 thou/uL (0.11-0.59); #Neutrophils 4.4 thou/uL (1.40-6.50); %Basophils 0.8 % (0.0-1.0); %Eosinophils 3.8 % (0.0-10.0); %Lymphocytes 16.5 % (21.0-51.0); %Monocytes 11.1 % (0.0-10.0); %Neutrophils 67.8 % (42.0-75.0); Hemoglobin 13.2 g/dL (14.0-18.0); Mean Corpuscular HGB CONC 33.8 g/dL (32.0-36.0); Mean Corpuscular Hemoglobin 29.9 pg (27.0-31.0); Mean Corpuscular Volume 88.4 fL (78.0-98.0); Mean Platelet Volume 7.1 fL (7.4-10.4); Platelet Count 206 thou/uL (130-400); RBC Distribution Width 12.9 % (11.5-14.5); Red Blood Cell (RBC) Count 4.41 mill/uL (4.70-6.10); White Blood Cell (WBC) Count 6.5 thou/uL (4.8-10.8)
[2018-07-28] MEDS ORDERED: Meclizine HCl 25 MG TAB ONE (09:14)
--- NOTE | 2018-07-28 09:20 | RAD ---
EXAM: Chest one view: HISTORY: Midsternal chest pain COMPARISON: 07/20/2018 FINDINGS: Postop midline sternotomy. Heart size: Within normal limits. The lungs: Clear of acute process. No evidence for pneumonia, pleural effusion, acute edema, or pneumothorax, or other significant acute process. IMPRESSION: No significant acute intrathoracic disease. Stable study.
[2018-07-28 09:35] LABS: ALT (SGPT) 27 U/L (8-55); AST (SGOT) 31 U/L (5-34); Albumin 4.2 g/dL (3.4-4.8); Alkaline Phosphatase 82 U/L (40-150); Anion Gap 17 mmol/L (10-20); BUN (Urea Nitrogen) 16 mg/dL (8.4-25.7); Bilirubin, Total 1.6 mg/dL (0.2-1.2); Calc. Creatinine Clearance 0 mL/min (70-130); Calcium 9.2 mg/dL (7.8-10.44); Carbon Dioxide 23 mmol/L (23-31); Chloride 103 mmol/L (98-107); Estimated GFR-MDRD Greater than 90; Globulin 2.9 g/dL (2.4-3.5); Glucose 131 mg/dL (80-115); Potassium 4.5 mmol/L (3.5-5.1); Protein, Total 7.1 g/dL (5.8-8.1); Sodium 138 mmol/L (136-145)
--- NOTE | 2018-07-28 09:44 | CT ---
CT Brain WO Con History: [Headache] Comparison: None. Findings: No acute hemorrhage or infarct. No midline shift or mass effect. Ventricular size and extra -axial CSF spaces are normal. Calvarium is intact. Paranasal sinuses and mastoids are clear. Impression: No acute hemorrhage or infarct.
== END 2018-07-28 11:34 | disposition home or self-care (01) ==
LOC: ERS 08:48
DX: I20.8 Other forms of angina pectoris (principal); R51 Headache; E11.9 Type 2 diabetes mellitus without complications; Z79.899 Other long term (current) drug therapy; Z79.82 Long term (current) use of aspirin
CPT/HCPCS: 36416; 70450; 71045; 80053; 84484; 85025; 93005; 96360; J8499

== ENCOUNTER 2019-02-08 13:58 | Outpatient (CLI) | payer BC ==
--- NOTE | 2019-02-08 14:20 | CT ---
Exam: CT brain PROVIDED CLINICAL HISTORY: Head injury COMPARISON: 07/28/2018 FINDINGS: The ventricular system is normal in size and morphology. No evidence for intracranial hemorrhage or mass effect. The extracranial soft tissues and osseous structures demonstrate no evidence for an acute abnormality. IMPRESSION: No evidence for intracranial hemorrhage or mass effect.
== END 2019-02-08 13:59 | disposition home or self-care (01) ==
LOC: BICCT 13:58
PROVIDERS: ATTEND Internal Medicine Cardiovascular Disease
DX: S00.93XA Contusion of unspecified part of head, initial encounter (principal)
CPT/HCPCS: 70450

== ENCOUNTER 2019-10-25 11:18 | Emergency (ER) | payer BC ==
[2019-10-25 12:01] LABS: #Basophils 0.1 thou/uL (0.0-0.2); #Eosinphils 0.1 thou/uL (0.0-0.7); #Lymphocytes 1.1 thou/uL (1.20-3.40); #Monocytes 0.5 thou/uL (0.11-0.59); #Neutrophils 3.3 thou/uL (1.40-6.50); %Basophils 1.5 % (0.0-1.0); %Eosinophils 2.4 % (0.0-10.0); %Monocytes 9.7 % (0.0-10.0); %Neutrophils 64.4 % (42.0-75.0); Hemoglobin 13.5 g/dL (14.0-18.0); Mean Corpuscular HGB CONC 34.6 g/dL (32.0-36.0); Mean Corpuscular Hemoglobin 31.2 pg (27.0-31.0); Mean Platelet Volume 6.9 fL (7.4-10.4); Platelet Count 171 thou/uL (130-400); RBC Distribution Width 12.9 % (11.5-14.5); Red Blood Cell (RBC) Count 4.32 mill/uL (4.70-6.10); White Blood Cell (WBC) Count 5.1 thou/uL (4.8-10.8)
[2019-10-25 12:33] LABS: ALT (SGPT) 20 U/L (8-55); AST (SGOT) 30 U/L (5-34); Albumin 3.9 g/dL (3.4-4.8); Alkaline Phosphatase 59 U/L (40-110); Anion Gap 13 mmol/L (10-20); BUN (Urea Nitrogen) 19 mg/dL (8.4-25.7); Calc. Creatinine Clearance 0 mL/min (70-130); Calcium 8.5 mg/dL (7.8-10.44); Carbon Dioxide 27 mmol/L (23-31); Chloride 102 mmol/L (98-107); Estimated GFR-MDRD Greater than 90; Globulin 2.6 g/dL (2.4-3.5); Glucose 127 mg/dL (80-115); Potassium 3.7 mmol/L (3.5-5.1); Protein, Total 6.5 g/dL (5.8-8.1); Sodium 138 mmol/L (136-145)
--- NOTE | 2019-10-25 12:44 | RAD ---
RADIOGRAPH CHEST 1 VIEW: DATE: 10/25/2019 HISTORY: 63-year-old male status post vomiting. Concern for aspiration. FINDINGS: There are no airspace densities, pulmonary edema, pneumothorax, or cardiomegaly. The lateral costophr enic angles are sharp. There are sternotomy wires. IMPRESSION: No acute cardiopulmonary findings.
== END 2019-10-25 14:30 | disposition home or self-care (01) ==
LOC: ERS 11:18
DX: R55 Syncope and collapse (principal); R42 Dizziness and giddiness; I25.10 Atherosclerotic heart disease of native coronary artery without angina pectoris; E11.9 Type 2 diabetes mellitus without complications; Z85.21 Personal history of malignant neoplasm of larynx; Z79.899 Other long term (current) drug therapy; Z79.84 Long term (current) use of oral hypoglycemic drugs; Z79.82 Long term (current) use of aspirin
CPT/HCPCS: 36415; 71045; 80053; 84484; 85025; 93005; 94760

== ENCOUNTER 2023-10-30 09:07 | Outpatient (CLI) | payer MEDICARE ==
[~2023-10-30 09:07] MED LIST: Iopamidol 370 76% 100 ML VIAL ONE
== END 2023-10-30 09:08 | disposition home or self-care (01) ==
LOC: CT 09:07
PROVIDERS: ATTEND Urology
DX: N28.89 Other specified disorders of kidney and ureter (principal)
CPT/HCPCS: 71260; 78306; A9503; 36415; 80048; 81001; 85025; 87086; Q9967

== ENCOUNTER 2023-11-08 12:04 | Outpatient (CLI) | payer MEDICARE ==
[2023-11-08] MEDS ORDERED: Iopamidol 370 76% 100 ML VIAL ONE (12:12)
== END 2023-11-08 12:05 | disposition home or self-care (01) ==
LOC: CT 12:04
PROVIDERS: ATTEND Internal Medicine Cardiovascular Disease
DX: I72.0 Aneurysm of carotid artery (principal); I65.22 Occlusion and stenosis of left carotid artery; R22.1 Localized swelling, mass and lump, neck; Z92.3 Personal history of irradiation
CPT/HCPCS: 70498; Q9967

== ENCOUNTER 2023-11-08 13:21 | Outpatient (CLI) | payer MEDICARE ==
[2023-11-08 16:43] LABS: Bacteria/HPF None Seen HPF (None Seen); RBC/HPF 0-3 HPF (0-3); Squamous Epithelial None Seen HPF (0-3); WBC/HPF 0-3 HPF (0-3)
[2023-11-08 16:48] LABS: Anion Gap 14 mmol/L (10-20); BUN (Urea Nitrogen) 13 mg/dL (8.4-25.7); Calc. Creatinine Clearance 0 mL/min (70-130); Calcium 9.1 mg/dL (7.8-10.44); Carbon Dioxide 28 mmol/L (23-31); Chloride 100 mmol/L (98-107); Estimated GFR 96; Glucose 139 mg/dL (80-115); Potassium 4.3 mmol/L (3.5-5.1); Sodium 138 mmol/L (136-145)
[2023-11-08 16:49] LABS: PTT 26.1 sec (22.9-36.1)
[2023-11-08 16:56] LABS: #Basophils 0.03 10x3/uL (0.0-0.2); %Basophils 0.5 % (0.0-1.0); %Eosinophils 3.8 % (0.0-10.0); %Lymphocytes 27.4 % (21.0-51.0); %Monocytes 12.4 % (0.0-10.0); %Neutrophils 55.6 % (42.0-75.0); Hematocrit 38.2 % (42.0-52.0); Hemoglobin 11.6 g/dL (14.0-18.0); Mean Corpuscular HGB CONC 30.4 g/dL (32.0-36.0); Mean Corpuscular Hemoglobin 22.7 pg (27.0-31.0); Mean Corpuscular Volume 74.8 fL (78.0-98.0); Mean Platelet Volume 10.3 fL (7.4-10.4); Platelet Count 258 10x3/uL (130-400); RBC Distribution Width 18.6 % (11.5-14.5); Red Blood Cell (RBC) Count 5.11 mill/uL (4.70-6.10)
== END 2023-11-08 13:22 | disposition home or self-care (01) ==
LOC: LABBT 13:21
PROVIDERS: ATTEND Urology
DX: Z01.818 Encounter for other preprocedural examination (principal); Z12.5 Encounter for screening for malignant neoplasm of prostate; N28.89 Other specified disorders of kidney and ureter; N40.1 Benign prostatic hyperplasia with lower urinary tract symptoms; N52.9 Male erectile dysfunction, unspecified; E11.9 Type 2 diabetes mellitus without complications; I25.810 Atherosclerosis of coronary artery bypass graft(s) without angina pectoris; R81 Glycosuria; R35.0 Frequency of micturition; I95.1 Orthostatic hypotension
CPT/HCPCS: 71046; 80048; 81015; 85025; 85610; 85730; 86850; 86900; 86901; 87086; 93005; 93010

== ENCOUNTER 2024-03-01 11:39 | Outpatient (CLI) | payer MEDICARE | END 2024-03-01 11:40 | disposition home or self-care (01) | LOC: DTY/OP 11:39 | PROVIDERS: ATTEND Family Medicine | DX: E11.9 Type 2 diabetes mellitus without complications (principal) | CPT/HCPCS: 97802 ==

== ENCOUNTER 2024-04-25 10:32 | Outpatient (CLI) | payer MEDICARE | END 2024-04-25 10:33 | disposition home or self-care (01) | LOC: ULT 10:32 | PROVIDERS: ATTEND Urology | DX: C64.2 Malignant neoplasm of left kidney, except renal pelvis (principal); N20.0 Calculus of kidney; Z90.5 Acquired absence of kidney; I87.8 Other specified disorders of veins | CPT/HCPCS: 74018; 76770 ==